=== PATIENT | female | born 1995 | race Asian ===

== ENCOUNTER 2021-08-13 04:42 | Emergency (ER) | payer OTHER ==
[~2021-08-13] VITALS: Ht 139.7 cm; Wt 63.0 kg
[2021-08-13] MEDS ORDERED: HYDROCODONE/ACETAMINOPHEN 5/325MG TABLET PO ONE (06:30)
[2021-08-13] MEDS ORDERED: KETOROLAC 60MG/2ML VIAL IM ONE (06:30)
[2021-08-13] MEDS ORDERED: ONDANSETRON 4MG ODT PO ONE (06:30)
[2021-08-13] MEDS ORDERED: IBUP-2029 MT (06:59)
[2021-08-13] MEDS ORDERED: METH-773 MT (06:59)
[2021-08-13 07:09] VITALS: BP 109/69
== END 2021-08-13 07:11 | disposition home or self-care (01) ==
LOC: ER 05:51
DX: M54.42 Lumbago with sciatica, left side (principal); Z98.890 Other specified postprocedural states
CPT/HCPCS: 72100; 81025; 96372; 99283; J1885; Q0162

== ENCOUNTER 2022-10-09 20:12 | Emergency (ER) | payer OTHER ==
[~2022-10-09] VITALS: Ht 139.7 cm; Wt 64.5 kg
[~2022-10-09 20:12] MED LIST: IBUP-2029 MT; METH-773 MT
[2022-10-09 20:24] VITALS: BP 124/82
[2022-10-10] MEDS ORDERED: HYDR-459 MT (02:21)
== END 2022-10-10 02:35 | disposition home or self-care (01) ==
LOC: ER 20:32
DX: F41.9 Anxiety disorder, unspecified (principal); Z88.0 Allergy status to penicillin; Z98.890 Other specified postprocedural states
CPT/HCPCS: 71045; 81025; 93005; 99283

== ENCOUNTER 2023-01-23 22:56 | Emergency (ER) | payer MEDICAID, OTHER ==
[~2023-01-23] VITALS: Ht 139.7 cm; Wt 65.4 kg
[~2023-01-23 22:56] MED LIST changes: +HYDR-459 MT
[2023-01-23 23:02] VITALS: BP 137/69
[2023-01-24] MEDS ORDERED: IPRATROPIUM BROMIDE (0.02%) 0.5MG/2.5ML NEB HHN STA (01:27)
[2023-01-24] MEDS ORDERED: ACETAMINOPHEN 325MG TABLET PO STA (01:27)
[2023-01-24] MEDS ORDERED: ONDANSETRON 4MG ODT PO STA (01:27)
[2023-01-24] MEDS ORDERED: ALBUTEROL (0.083%) 2.5MG/3ML NEB HHN STA (01:27)
[2023-01-24] MEDS ORDERED: FAMO20TA8 MT (04:37)
[2023-01-24] MEDS ORDERED: ALBU18HF2 IH (04:37)
[2023-01-24] MEDS ORDERED: AZIT250T12 MT (04:37)
[2023-01-24] MEDS ORDERED: NAPR-681 PO (04:37)
[2023-01-24 06:25] LABS: CLARITY URINE CLEAR (CLEAR); COLOR URINE YELLOW (YELLOW); KETONES URINE 1+ (NEGATIVE); LEUKOCYTE ESTERASE URINE NEGATIVE (NEGATIVE); NITRITE URINE NEGATIVE (NEGATIVE); OCCULT BLOOD URINE NEGATIVE (NEGATIVE); PH URINE 6.5 (4.5-8.0); PROTEIN URINE NEGATIVE (NEGATIVE); SPECIFIC GRAVITY URINE 1.027 (1.005-1.030); UROBILINOGEN URINE 0.2 E.U./dL (0.2-1.0)
== END 2023-01-24 06:02 | disposition home or self-care (01) ==
LOC: ER 22:56
DX: J20.9 Acute bronchitis, unspecified (principal); M94.0 Chondrocostal junction syndrome [Tietze]; R11.10 Vomiting, unspecified; R19.7 Diarrhea, unspecified
CPT/HCPCS: 71045; 81003; 81025; 93005; 94640; 99285; Q0162; Z7610

== ENCOUNTER 2025-03-04 00:59 | Emergency (ER) | payer BC, MEDICAID, OTHER ==
[~2025-03-04] VITALS: Ht 139.7 cm; Wt 53.0 kg
[~2025-03-04 00:59] MED LIST changes: +ALBU18HF2 IH; +AZIT250T12 MT; +FAMO20TA8 MT; +NAPR-681 PO
[2025-03-04 01:24] VITALS: O2SAT 98
[2025-03-04 02:44] LABS: BASOPHILS % 0.6 % (0.0-2.0); EOSINOPHILS % 2.3 % (0.0-5.0); HEMATOCRIT. 38.2 % (36.0-48.0); HEMOGLOBIN. 12.9 g/dL (12.0-16.0); LYMPHOCYTES % 15.9 % (20.0-50.0); MEAN CORPUSCULAR HEMOGLOBIN 30.1 pg (28.0-32.0); MEAN CORPUSCULAR HGB CONC 33.8 g/dL (31.0-37.0); MEAN CORPUSCULAR VOLUME 88.8 fL (81.0-99.0); MEAN PLATELET VOLUME 7.2 fl (7.4-10.4); MONOCYTES % 8.7 % (2.0-8.0); NEUTROPHILS % 72.5 % (40.0-76.0); PLATELET 270 x1000/uL (130-400); RED CELL DISTRIBUTION WIDTH 12.4 % (11.6-14.6); WHITE BLOOD COUNT 9.7 x1000/uL (4.5-11.0)
[2025-03-04 02:49] LABS: CHLORIDE 107 mEq/L (98-107); POTASSIUM 3.9 mEq/L (3.5-5.1); SODIUM 140 mEq/L (136-145)
[2025-03-04 02:50] LABS: CARBON DIOXIDE 28 mEq/L (21-32)
[2025-03-04 02:51] LABS: CALCIUM 9.4 mg/dL (8.7-10.4)
[2025-03-04 02:56] LABS: CREATININE 0.8 mg/dL (0.6-1.0); GLUCOSE 111 mg/dL (70-105); UREA NITROGEN BLOOD 14 mg/dL (9-23)
[2025-03-04 03:02] LABS: HCG SCREEN NEGATIVE
[2025-03-04 04:49] LABS: CLARITY URINE CLEAR (CLEAR); COLOR URINE YELLOW (YELLOW); GLUCOSE URINE NEGATIVE (NEGATIVE); KETONES URINE NEGATIVE (NEGATIVE); LEUKOCYTE ESTERASE URINE 2+ (NEGATIVE); NITRITE URINE NEGATIVE (NEGATIVE); OCCULT BLOOD URINE 2+ (NEGATIVE); PH URINE 5.5 (4.5-8.0); PROTEIN URINE 1+ (NEGATIVE); SPECIFIC GRAVITY URINE 1.011 (1.005-1.030); UROBILINOGEN URINE 0.2 E.U./dL (0.2-1.0)
[2025-03-04] MEDS ORDERED: CLAR-44 MT (04:56)
[2025-03-04] MEDS ORDERED: PHEN-815 MT (04:59)
[2025-03-04 05:10] VITALS: BP 108/58; PULSE 63; RESP 18; TEMP 37.1; O2SAT 98
[2025-03-04 06:03] LABS: SQUAMOUS EPITHELIAL CELL URINE FEW /lpf (RARE/1+)
[2025-03-04 06:08] LABS: BACTERIA URINE 1+
[2025-03-04 06:09] LABS: WBC URINE 25-50 /hpf (0-2)
== END 2025-03-04 05:20 | disposition home or self-care (01) ==
LOC: ER 00:59
DX: N39.0 Urinary tract infection, site not specified (principal); F41.9 Anxiety disorder, unspecified; F10.90 Alcohol use, unspecified, uncomplicated; Z88.0 Allergy status to penicillin; Y90.9 Presence of alcohol in blood, level not specified
CPT/HCPCS: 36415; 80048; 81003; 84703; 85025; 87077; 87186; 99283